=== PATIENT | male | born 1970 | race Caucasian/White ===

== ENCOUNTER → 2022-11-21 | Outpatient (CLI) | payer OTHER, MEDICAID ==
[~2022-11-21] MED LIST: BACTRIM DS 8001 TA1 PO; DEPAKOTE ER500 MG PO; INVEGA SUSTENN156 MG IM; LACTULOSE20 GM/30 M PO; LIPITOR80 MG PO; METFORMIN500 MG PO; NKHM; OLANZAPINE20 M2 PO; PLAVIX75 M1 PO; SEPTRA DS 800 M1 TAB PO; ZESTRIL2.5 MG PO
== END | disposition home or self-care (01) ==
LOC: ORTHO 01:39
PROVIDERS: ATTEND Orthopaedic Surgery
DX: M70.21 Olecranon bursitis, right elbow (principal); M79.89 Other specified soft tissue disorders; M25.521 Pain in right elbow; Y93.89 Activity, other specified

== ENCOUNTER → 2023-01-14 | Outpatient (CLI) | payer OTHER, MEDICAID | END | disposition home or self-care (01) | LOC: US 01:53 | PROVIDERS: ATTEND Orthopaedic Surgery | DX: M79.5 Residual foreign body in soft tissue (principal) ==